=== PATIENT | male | born 1995 ===

== ENCOUNTER 2019-09-13 10:22 | Inpatient (IN) ==
[2019-09-13] MEDS ORDERED: ACETAMINOPHEN 500 MG TABLET ONE (13:42)
[2019-09-13] MEDS ORDERED: REMDESIVIR 200 MG in SODIUM CHLORIDE 0.9% 210 ML IV ONE (15:00)
[2019-09-13] MEDS ORDERED: ALBUTEROL 2.5 MG/3 ML NEB RESP TX PRN (15:08)
[2019-09-13] MEDS ORDERED: ONDANSETRON 4 MG/2 ML VIAL IV PRN (15:15)
[2019-09-13] MEDS ORDERED: PANTOPRAZOLE 40 MG VIAL IV SCH (15:30)
[2019-09-13 16:50] LABS: Basophils % 0.1 % (0.0-0.8); Hematocrit 37.9 VOL% (42.0-52.0); Hemoglobin 12.8 GM/DL (14.0-18.0); Immature Granulocytes % 0.7 %; Immature Granulocytes Absolute 0.06 #; Lymphocytes # 0.6 10*3/uL (1.4-4.0); Lymphocytes % 6.6 % (21.2-54.2); Mean Corpuscular HGB Conc 33.8 GM/DL (32-36); Mean Corpuscular Volume 90.9 FL (87-102); Mean Platelet Volume 9.3 FL (9.6-12.0); Monocytes % 3.8 % (1.7-12.7); Neutrophils % 88.8 % (38.7-73.9); Platelet Count 216 T/CUMM (130-400); Red Blood Count 4.17 MC/CUMM (3.8-5.5); Red Cell Distribution Width 13.1 % (9.3-17.3); White Blood Count 8.5 T/CUMM (4-12)
[2019-09-13] MEDS: ENOXAPARIN 100 MG/ML SYRINGE SUBCUT SCH (17:00)
[2019-09-13 17:19] LABS: Albumin 2.3 G/DL (3.4-5.0); Bilirubin,Total 0.8 MG/DL (0.2-1.0); Osmolality,Calculated 281.7 MOS/KG (273-304); Total Protein 7.2 G/DL (6.4-8.3)
[2019-09-14] MEDS ORDERED: cloNIDine 0.3 MG/24 HR PATCH TRANSDERM SCH (01:00)
[2019-09-14] MEDS: ENOXAPARIN 100 MG/ML SYRINGE SUBCUT SCH ×2 (04:13→17:30)
[2019-09-14 04:16] LABS: Basophils % 0.2 % (0.0-0.8); Hemoglobin 12.9 GM/DL (14.0-18.0); Immature Granulocytes % 0.9 %; Immature Granulocytes Absolute 0.06 #; Lymphocytes # 0.6 10*3/uL (1.4-4.0); Lymphocytes % 9.2 % (21.2-54.2); Mean Corpuscular HGB Conc 33.1 GM/DL (32-36); Mean Corpuscular Volume 91.5 FL (87-102); Mean Platelet Volume 9.3 FL (9.6-12.0); Monocytes % 5.3 % (1.7-12.7); Neutrophils % 84.4 % (38.7-73.9); Platelet Count 226 T/CUMM (130-400); Red Blood Count 4.26 MC/CUMM (3.8-5.5); White Blood Count 6.4 T/CUMM (4-12)
[2019-09-14 04:56] LABS: Calcium 7.6 MG/DL (8.5-10.1); Osmolality,Calculated 278.7 MOS/KG (273-304)
[2019-09-14] MEDS ORDERED: POTASSIUM CHLORIDE 20 MEQ TABLET PO ONE (07:07)
[2019-09-14 07:34] LABS: Bilirubin,Total 0.9 MG/DL (0.2-1.0)
[2019-09-14] MEDS ORDERED: PANTOPRAZOLE 40 MG TABLET PO SCH (09:00)
[2019-09-14] MEDS: amLODIPine 10 MG TABLET PO SCH (09:45)
[2019-09-14] MEDS: metFORMIN 500 MG TABLET PO SCH ×2 (09:45→21:12)
[2019-09-14] MEDS: INSULIN REGULAR 100 UNIT/ML SUBCUT SCH ×3 (12:53→21:12)
[2019-09-14] MEDS: REMDESIVIR 100 MG in SODIUM CHLORIDE 0.9% 230 ML IV SCH (16:05)
[2019-09-14] MEDS ORDERED: GLUCAGON 1 MG VIAL IM PRN (17:55)
[2019-09-14] MEDS ORDERED: DEXTROSE 10% 250 ML BAG IV PRN (17:55)
[2019-09-14] MEDS: hydrALAZINE 10 MG TABLET PO SCH (21:12)
[2019-09-15] MEDS: ENOXAPARIN 100 MG/ML SYRINGE SUBCUT SCH ×2 (04:00→16:38)
[2019-09-15 07:08] LABS: Basophils % 0.4 % (0.0-0.8); Hemoglobin 12.9 GM/DL (14.0-18.0); Immature Granulocytes % 1.4 %; Immature Granulocytes Absolute 0.07 #; Lymphocytes # 0.8 10*3/uL (1.4-4.0); Lymphocytes % 15.1 % (21.2-54.2); Mean Corpuscular HGB Conc 33.1 GM/DL (32-36); Mean Corpuscular Volume 92.4 FL (87-102); Mean Platelet Volume 9.8 FL (9.6-12.0); Monocytes % 7.8 % (1.7-12.7); Neutrophils % 75.3 % (38.7-73.9); Platelet Count 266 T/CUMM (130-400); Red Blood Count 4.22 MC/CUMM (3.8-5.5); Red Cell Distribution Width 13.2 % (9.3-17.3); White Blood Count 5.2 T/CUMM (4-12)
[2019-09-15 07:24] LABS: Albumin 2.2 G/DL (3.4-5.0); Bilirubin,Total 0.7 MG/DL (0.2-1.0); Calcium 8.2 MG/DL (8.5-10.1); Osmolality,Calculated 274.7 MOS/KG (273-304); Total Protein 7.1 G/DL (6.4-8.3)
[2019-09-15] MEDS: INSULIN REGULAR 100 UNIT/ML SUBCUT SCH ×4 (08:41→19:55)
[2019-09-15] MEDS: metFORMIN 500 MG TABLET PO SCH ×2 (10:01→19:55)
[2019-09-15] MEDS: amLODIPine 10 MG TABLET PO SCH (10:02)
[2019-09-15] MEDS: hydrALAZINE 10 MG TABLET PO SCH ×4 (10:02→19:55)
[2019-09-15] MEDS: lisinopriL 5 MG TABLET PO SCH (16:35)
[2019-09-15] MEDS: ATORVASTATIN 40 MG TABLET PO SCH (16:35)
[2019-09-15] MEDS: REMDESIVIR 100 MG in SODIUM CHLORIDE 0.9% 230 ML IV SCH (16:36)
[2019-09-16] MEDS: ENOXAPARIN 100 MG/ML SYRINGE SUBCUT SCH ×2 (04:45→17:20)
[2019-09-16 06:00] LABS: Basophils % 0.3 % (0.0-0.8); Eosinophils % 0.5 % (0.00-10.9); Hematocrit 39.7 VOL% (42.0-52.0); Immature Granulocytes % 2.2 %; Immature Granulocytes Absolute 0.13 #; Lymphocytes # 0.8 10*3/uL (1.4-4.0); Lymphocytes % 13.1 % (21.2-54.2); Mean Corpuscular HGB Conc 32.7 GM/DL (32-36); Mean Corpuscular Volume 92.1 FL (87-102); Mean Platelet Volume 9.3 FL (9.6-12.0); Monocytes % 8.6 % (1.7-12.7); Neutrophils % 75.3 % (38.7-73.9); Platelet Count 328 T/CUMM (130-400); Red Blood Count 4.31 MC/CUMM (3.8-5.5); Red Cell Distribution Width 12.9 % (9.3-17.3)
[2019-09-16 06:40] LABS: Calcium 8.3 MG/DL (8.5-10.1); Ferritin 570.1 ng/ml (26-388); Osmolality,Calculated 275.5 MOS/KG (273-304)
[2019-09-16] MEDS: INSULIN REGULAR 100 UNIT/ML SUBCUT SCH ×4 (09:10→20:21)
[2019-09-16] MEDS: ATORVASTATIN 40 MG TABLET PO SCH (09:11)
[2019-09-16] MEDS: metFORMIN 500 MG TABLET PO SCH ×3 (09:11→20:20)
[2019-09-16] MEDS: hydrALAZINE 10 MG TABLET PO SCH ×4 (09:11→20:15)
[2019-09-16] MEDS: amLODIPine 10 MG TABLET PO SCH (09:11)
[2019-09-16] MEDS: lisinopriL 5 MG TABLET PO SCH (09:11)
[2019-09-16] MEDS: REMDESIVIR 100 MG in SODIUM CHLORIDE 0.9% 230 ML IV SCH (15:49)
[2019-09-17] MEDS: ENOXAPARIN 100 MG/ML SYRINGE SUBCUT SCH ×2 (03:53→21:30)
[2019-09-17 06:16] LABS: Basophils % 0.5 % (0.0-0.8); Eosinophils # 0.1 10*3/uL (0.0-0.87); Eosinophils % 1.1 % (0.00-10.9); Hematocrit 39.7 VOL% (42.0-52.0); Hemoglobin 13.4 GM/DL (14.0-18.0); Immature Granulocytes % 3.3 %; Lymphocytes # 0.8 10*3/uL (1.4-4.0); Lymphocytes % 12.5 % (21.2-54.2); Mean Corpuscular HGB Conc 33.8 GM/DL (32-36); Mean Corpuscular Volume 89.6 FL (87-102); Mean Platelet Volume 9.6 FL (9.6-12.0); Monocytes % 8.8 % (1.7-12.7); Neutrophils % 73.8 % (38.7-73.9); Platelet Count 344 T/CUMM (130-400); Red Blood Count 4.43 MC/CUMM (3.8-5.5); Red Cell Distribution Width 12.9 % (9.3-17.3); White Blood Count 6.2 T/CUMM (4-12)
[2019-09-17 06:39] LABS: Calcium 8.4 MG/DL (8.5-10.1); Ferritin 568.3 ng/ml (26-388); Osmolality,Calculated 274.5 MOS/KG (273-304)
[2019-09-17] MEDS: POTASSIUM CHLORIDE 20 MEQ TABLET PO PRN (06:57)
[2019-09-17] MEDS: INSULIN REGULAR 100 UNIT/ML SUBCUT SCH ×4 (08:43→21:30)
[2019-09-17] MEDS: metFORMIN 500 MG TABLET PO SCH ×2 (09:28→21:29)
[2019-09-17] MEDS: ATORVASTATIN 40 MG TABLET PO SCH (09:28)
[2019-09-17] MEDS: hydrALAZINE 10 MG TABLET PO SCH ×4 (09:28→21:29)
[2019-09-17] MEDS: amLODIPine 10 MG TABLET PO SCH (09:29)
[2019-09-17] MEDS: lisinopriL 5 MG TABLET PO SCH (09:29)
[2019-09-17] MEDS: ACETAMINOPHEN 500 MG TABLET PO PRN (12:37)
[2019-09-17] MEDS: REMDESIVIR 100 MG in SODIUM CHLORIDE 0.9% 230 ML IV SCH (17:01)
[2019-09-18 06:14] LABS: Basophils % 0.5 % (0.0-0.8); Eosinophils # 0.2 10*3/uL (0.0-0.87); Eosinophils % 2.1 % (0.00-10.9); Hematocrit 40.1 VOL% (42.0-52.0); Hemoglobin 13.3 GM/DL (14.0-18.0); Immature Granulocytes % 3.9 %; Immature Granulocytes Absolute 0.29 #; Lymphocytes # 0.7 10*3/uL (1.4-4.0); Lymphocytes % 9.9 % (21.2-54.2); Mean Corpuscular HGB Conc 33.2 GM/DL (32-36); Mean Corpuscular Volume 91.8 FL (87-102); Mean Platelet Volume 9.4 FL (9.6-12.0); Neutrophils % 75.6 % (38.7-73.9); Platelet Count 359 T/CUMM (130-400); Red Blood Count 4.37 MC/CUMM (3.8-5.5); Red Cell Distribution Width 12.9 % (9.3-17.3); White Blood Count 7.5 T/CUMM (4-12)
[2019-09-18 06:24] LABS: Calcium 8.4 MG/DL (8.5-10.1); Osmolality,Calculated 273.5 MOS/KG (273-304)
[2019-09-18] MEDS ORDERED: POTASSIUM CHLORIDE 20 MEQ TABLET PO ONE (06:59)
[2019-09-18] MEDS: ATORVASTATIN 40 MG TABLET PO SCH (08:45)
[2019-09-18] MEDS: INSULIN REGULAR 100 UNIT/ML SUBCUT SCH ×4 (08:45→21:38)
[2019-09-18] MEDS: lisinopriL 5 MG TABLET PO SCH (08:45)
[2019-09-18] MEDS: ENOXAPARIN 100 MG/ML SYRINGE SUBCUT SCH ×2 (08:45→21:08)
[2019-09-18] MEDS: hydrALAZINE 10 MG TABLET PO SCH ×4 (08:45→21:08)
[2019-09-18] MEDS: amLODIPine 10 MG TABLET PO SCH (08:45)
[2019-09-18] MEDS: metFORMIN 500 MG TABLET PO SCH ×2 (08:45→21:08)
[2019-09-18] MEDS: ACETAMINOPHEN 500 MG TABLET PO PRN ×2 (16:09→21:09)
[2019-09-19 05:50] LABS: Basophils % 0.3 % (0.0-0.8); Eosinophils # 0.3 10*3/uL (0.0-0.87); Eosinophils % 2.9 % (0.00-10.9); Hematocrit 38.3 VOL% (42.0-52.0); Immature Granulocytes Absolute 0.36 #; Lymphocytes # 0.8 10*3/uL (1.4-4.0); Lymphocytes % 9.1 % (21.2-54.2); Mean Corpuscular HGB Conc 33.9 GM/DL (32-36); Mean Corpuscular Volume 89.1 FL (87-102); Mean Platelet Volume 9.5 FL (9.6-12.0); Monocytes % 6.7 % (1.7-12.7); Platelet Count 342 T/CUMM (130-400)
[2019-09-19 06:12] LABS: Calcium 8.4 MG/DL (8.5-10.1); Osmolality,Calculated 271.7 MOS/KG (273-304)
[2019-09-19] MEDS: INSULIN REGULAR 100 UNIT/ML SUBCUT SCH ×4 (08:03→21:44)
[2019-09-19] MEDS: ENOXAPARIN 100 MG/ML SYRINGE SUBCUT SCH ×2 (08:06→21:06)
[2019-09-19] MEDS: metFORMIN 500 MG TABLET PO SCH ×2 (08:08→21:06)
[2019-09-19] MEDS: lisinopriL 5 MG TABLET PO SCH (08:08)
[2019-09-19] MEDS: POTASSIUM CHLORIDE 20 MEQ TABLET PO PRN ×3 (08:08→12:20)
[2019-09-19] MEDS: amLODIPine 10 MG TABLET PO SCH (08:08)
[2019-09-19] MEDS: hydrALAZINE 10 MG TABLET PO SCH ×4 (08:08→21:05)
[2019-09-19] MEDS: ATORVASTATIN 40 MG TABLET PO SCH (08:08)
[2019-09-19] MEDS: ACETAMINOPHEN 500 MG TABLET PO PRN (21:07)
[2019-09-20 05:44] LABS: Basophils # 0.1 10*3/uL (0.0-0.2); Basophils % 0.6 % (0.0-0.8); Eosinophils # 0.2 10*3/uL (0.0-0.87); Eosinophils % 2.1 % (0.00-10.9); Hematocrit 39.9 VOL% (42.0-52.0); Hemoglobin 13.4 GM/DL (14.0-18.0); Immature Granulocytes % 4.2 %; Immature Granulocytes Absolute 0.37 #; Lymphocytes # 0.8 10*3/uL (1.4-4.0); Lymphocytes % 8.7 % (21.2-54.2); Mean Corpuscular HGB Conc 33.6 GM/DL (32-36); Mean Corpuscular Volume 91.1 FL (87-102); Mean Platelet Volume 10.7 FL (9.6-12.0); Monocytes % 6.7 % (1.7-12.7); Neutrophils % 77.7 % (38.7-73.9); Platelet Count 242 T/CUMM (130-400); Red Blood Count 4.38 MC/CUMM (3.8-5.5); White Blood Count 8.9 T/CUMM (4-12)
[2019-09-20 06:11] LABS: Calcium 8.6 MG/DL (8.5-10.1); Osmolality,Calculated 257.7 MOS/KG (273-304)
[2019-09-20] MEDS: INSULIN REGULAR 100 UNIT/ML SUBCUT SCH ×4 (08:31→20:27)
[2019-09-20] MEDS: ENOXAPARIN 100 MG/ML SYRINGE SUBCUT SCH ×2 (08:32→20:12)
[2019-09-20] MEDS: hydrALAZINE 10 MG TABLET PO SCH ×4 (08:32→20:12)
[2019-09-20] MEDS: ATORVASTATIN 40 MG TABLET PO SCH (08:32)
[2019-09-20] MEDS: metFORMIN 500 MG TABLET PO SCH ×2 (08:32→20:12)
[2019-09-20] MEDS: amLODIPine 10 MG TABLET PO SCH (08:32)
[2019-09-20] MEDS: lisinopriL 5 MG TABLET PO SCH (08:33)
[2019-09-20] MEDS: ACETAMINOPHEN 500 MG TABLET PO PRN (23:54)
[2019-09-21 05:34] LABS: Basophils % 0.3 % (0.0-0.8); Eosinophils # 0.1 10*3/uL (0.0-0.87); Eosinophils % 1.1 % (0.00-10.9); Hematocrit 39.5 VOL% (42.0-52.0); Hemoglobin 13.3 GM/DL (14.0-18.0); Immature Granulocytes % 4.7 %; Lymphocytes % 9.7 % (21.2-54.2); Mean Corpuscular HGB Conc 33.7 GM/DL (32-36); Mean Platelet Volume 10.1 FL (9.6-12.0); Neutrophils % 78.2 % (38.7-73.9); Platelet Count 368 T/CUMM (130-400); Red Blood Count 4.34 MC/CUMM (3.8-5.5); Red Cell Distribution Width 12.9 % (9.3-17.3); White Blood Count 10.7 T/CUMM (4-12)
[2019-09-21 05:54] LABS: Calcium 8.7 MG/DL (8.5-10.1); Osmolality,Calculated 262.4 MOS/KG (273-304)
[2019-09-21] MEDS: INSULIN REGULAR 100 UNIT/ML SUBCUT SCH ×4 (07:34→20:42)
[2019-09-21 08:16] LABS: Calcium 8.5 MG/DL (8.5-10.1); Ferritin 889.8 ng/ml (26-388); Osmolality,Calculated 266.1 MOS/KG (273-304)
[2019-09-21] MEDS: ENOXAPARIN 100 MG/ML SYRINGE SUBCUT SCH ×2 (08:20→20:05)
[2019-09-21] MEDS: hydrALAZINE 10 MG TABLET PO SCH (08:21)
[2019-09-21] MEDS: amLODIPine 10 MG TABLET PO SCH (08:21)
[2019-09-21] MEDS: POTASSIUM CHLORIDE 20 MEQ TABLET PO PRN (08:21)
[2019-09-21] MEDS: ATORVASTATIN 40 MG TABLET PO SCH (08:21)
[2019-09-21] MEDS: lisinopriL 5 MG TABLET PO SCH (08:21)
[2019-09-21] MEDS: metFORMIN 500 MG TABLET PO SCH ×2 (08:22→20:05)
[2019-09-21] MEDS: ACETAMINOPHEN 500 MG TABLET PO PRN (19:10)
[2019-09-21] MEDS: hydrALAZINE 25 MG TABLET PO SCH (20:05)
[2019-09-22 05:58] LABS: Calcium 8.6 MG/DL (8.5-10.1); Ferritin 818.7 ng/ml (26-388); Osmolality,Calculated 263.4 MOS/KG (273-304)
[2019-09-22] MEDS: INSULIN REGULAR 100 UNIT/ML SUBCUT SCH ×4 (08:05→20:59)
[2019-09-22] MEDS: lisinopriL 5 MG TABLET PO SCH (09:00)
[2019-09-22] MEDS: ATORVASTATIN 40 MG TABLET PO SCH (09:01)
[2019-09-22] MEDS: metFORMIN 500 MG TABLET PO SCH ×2 (09:01→20:58)
[2019-09-22] MEDS: ENOXAPARIN 100 MG/ML SYRINGE SUBCUT SCH ×2 (09:01→20:58)
[2019-09-22] MEDS: amLODIPine 10 MG TABLET PO SCH (09:01)
[2019-09-22] MEDS: hydrALAZINE 25 MG TABLET PO SCH ×2 (09:01→20:58)
[2019-09-22] MEDS: ACETAMINOPHEN 500 MG TABLET PO PRN (19:45)
[2019-09-23 05:03] LABS: Basophils # 0.1 10*3/uL (0.0-0.2); Basophils % 0.5 % (0.0-0.8); Eosinophils # 0.2 10*3/uL (0.0-0.87); Hematocrit 36.9 VOL% (42.0-52.0); Hemoglobin 12.5 GM/DL (14.0-18.0); Immature Granulocytes Absolute 0.21 #; Lymphocytes # 1.2 10*3/uL (1.4-4.0); Lymphocytes % 11.3 % (21.2-54.2); Mean Corpuscular HGB Conc 33.9 GM/DL (32-36); Mean Corpuscular Volume 91.1 FL (87-102); Mean Platelet Volume 10.8 FL (9.6-12.0); Neutrophils % 77.2 % (38.7-73.9); Platelet Count 279 T/CUMM (130-400); Red Blood Count 4.05 MC/CUMM (3.8-5.5); Red Cell Distribution Width 13.2 % (9.3-17.3); White Blood Count 10.3 T/CUMM (4-12)
[2019-09-23 06:17] LABS: Calcium 8.7 MG/DL (8.5-10.1); Ferritin 1121.9 ng/ml (26-388); Osmolality,Calculated 260.5 MOS/KG (273-304)
[2019-09-23] MEDS: INSULIN REGULAR 100 UNIT/ML SUBCUT SCH ×4 (07:31→20:20)
[2019-09-23] MEDS: ENOXAPARIN 100 MG/ML SYRINGE SUBCUT SCH ×2 (08:11→20:20)
[2019-09-23] MEDS: ATORVASTATIN 40 MG TABLET PO SCH (08:12)
[2019-09-23] MEDS: hydrALAZINE 25 MG TABLET PO SCH ×2 (08:12→20:20)
[2019-09-23] MEDS: lisinopriL 5 MG TABLET PO SCH (08:12)
[2019-09-23] MEDS: metFORMIN 500 MG TABLET PO SCH ×2 (08:12→20:20)
[2019-09-23] MEDS: amLODIPine 10 MG TABLET PO SCH (08:12)
[2019-09-24 05:22] LABS: Basophils # 0.1 10*3/uL (0.0-0.2); Basophils % 0.5 % (0.0-0.8); Eosinophils # 0.2 10*3/uL (0.0-0.87); Eosinophils % 1.9 % (0.00-10.9); Hematocrit 37.5 VOL% (42.0-52.0); Hemoglobin 12.4 GM/DL (14.0-18.0); Immature Granulocytes % 2.2 %; Immature Granulocytes Absolute 0.24 #; Lymphocytes # 1.3 10*3/uL (1.4-4.0); Lymphocytes % 11.9 % (21.2-54.2); Mean Corpuscular HGB Conc 33.1 GM/DL (32-36); Mean Corpuscular Volume 92.4 FL (87-102); Mean Platelet Volume 10.1 FL (9.6-12.0); Monocytes % 7.4 % (1.7-12.7); Neutrophils % 76.1 % (38.7-73.9); Platelet Count 375 T/CUMM (130-400); Red Blood Count 4.06 MC/CUMM (3.8-5.5); Red Cell Distribution Width 13.4 % (9.3-17.3); White Blood Count 10.9 T/CUMM (4-12)
[2019-09-24 05:40] LABS: Calcium 8.9 MG/DL (8.5-10.1); Ferritin 1014.4 ng/ml (26-388); Osmolality,Calculated 264.2 MOS/KG (273-304)
[2019-09-24] MEDS: INSULIN REGULAR 100 UNIT/ML SUBCUT SCH ×4 (07:53→20:39)
[2019-09-24] MEDS: hydrALAZINE 25 MG TABLET PO SCH ×2 (08:13→20:54)
[2019-09-24] MEDS: ENOXAPARIN 100 MG/ML SYRINGE SUBCUT SCH ×2 (08:13→20:54)
[2019-09-24] MEDS: amLODIPine 10 MG TABLET PO SCH (08:14)
[2019-09-24] MEDS: lisinopriL 5 MG TABLET PO SCH (08:14)
[2019-09-24] MEDS: POTASSIUM CHLORIDE 20 MEQ TABLET PO PRN (08:14)
[2019-09-24] MEDS: metFORMIN 500 MG TABLET PO SCH ×2 (08:14→20:54)
[2019-09-24] MEDS: ATORVASTATIN 40 MG TABLET PO SCH (08:14)
[2019-09-24] MEDS ORDERED: LOPERAMIDE 2 MG CAPSULE PO PRN (13:01)
[2019-09-25 05:36] LABS: Basophils # 0.1 10*3/uL (0.0-0.2); Basophils % 0.7 % (0.0-0.8); Eosinophils # 0.2 10*3/uL (0.0-0.87); Eosinophils % 2.4 % (0.00-10.9); Hematocrit 37.2 VOL% (42.0-52.0); Hemoglobin 12.6 GM/DL (14.0-18.0); Immature Granulocytes Absolute 0.18 #; Lymphocytes # 1.3 10*3/uL (1.4-4.0); Lymphocytes % 13.9 % (21.2-54.2); Mean Corpuscular HGB Conc 33.9 GM/DL (32-36); Mean Corpuscular Volume 90.5 FL (87-102); Mean Platelet Volume 10.2 FL (9.6-12.0); Monocytes % 8.3 % (1.7-12.7); Neutrophils % 72.7 % (38.7-73.9); Platelet Count 367 T/CUMM (130-400); Red Blood Count 4.11 MC/CUMM (3.8-5.5); Red Cell Distribution Width 13.3 % (9.3-17.3); White Blood Count 9.2 T/CUMM (4-12)
[2019-09-25 06:11] LABS: Calcium 9.2 MG/DL (8.5-10.1); Ferritin 871.6 ng/ml (26-388); Osmolality,Calculated 264.2 MOS/KG (273-304)
[2019-09-25 06:30] LABS: Hypochromasia Slight; Microcytosis Slight; Platelet Estimate Normal
[2019-09-25] MEDS: hydrALAZINE 25 MG TABLET PO SCH ×2 (08:15→20:19)
[2019-09-25] MEDS: lisinopriL 5 MG TABLET PO SCH (08:15)
[2019-09-25] MEDS: metFORMIN 500 MG TABLET PO SCH ×2 (08:15→20:19)
[2019-09-25] MEDS: amLODIPine 10 MG TABLET PO SCH (08:15)
[2019-09-25] MEDS: ENOXAPARIN 100 MG/ML SYRINGE SUBCUT SCH ×2 (08:15→20:19)
[2019-09-25] MEDS: ATORVASTATIN 40 MG TABLET PO SCH (08:15)
[2019-09-25] MEDS: INSULIN REGULAR 100 UNIT/ML SUBCUT SCH ×4 (09:05→20:41)
[2019-09-25 14:20] LABS: ABG Base Excess 3.5 MMOL/L (-2.5-2.5); ABG HCO3 27.4 MMOL/L (20-26); ABG Oxygen Saturation 92.9 % (95-100); ABG PCO2 40.3 MM HG (35-48); ABG PH 7.446 (7.35-7.45); ABG PO2 65.3 MM HG (80-95); ABG TCO2 24.6 MMOL/L (23-27); Allen Test Positive; Pt O2 Delivery Device Other
[2019-09-26 05:38] LABS: Basophils # 0.1 10*3/uL (0.0-0.2); Basophils % 0.7 % (0.0-0.8); Eosinophils # 0.2 10*3/uL (0.0-0.87); Eosinophils % 2.9 % (0.00-10.9); Hematocrit 37.1 VOL% (42.0-52.0); Hemoglobin 12.3 GM/DL (14.0-18.0); Immature Granulocytes % 2.2 %; Immature Granulocytes Absolute 0.18 #; Lymphocytes # 1.4 10*3/uL (1.4-4.0); Lymphocytes % 16.6 % (21.2-54.2); Mean Corpuscular HGB Conc 33.2 GM/DL (32-36); Mean Corpuscular Volume 92.5 FL (87-102); Mean Platelet Volume 10.1 FL (9.6-12.0); Monocytes % 9.6 % (1.7-12.7); Platelet Count 368 T/CUMM (130-400); Red Blood Count 4.01 MC/CUMM (3.8-5.5); Red Cell Distribution Width 13.5 % (9.3-17.3); White Blood Count 8.2 T/CUMM (4-12)
[2019-09-26 06:01] LABS: Ferritin 751.9 ng/ml (26-388); Osmolality,Calculated 264.2 MOS/KG (273-304)
[2019-09-26] MEDS: INSULIN REGULAR 100 UNIT/ML SUBCUT SCH ×4 (07:26→21:55)
[2019-09-26] MEDS: metFORMIN 500 MG TABLET PO SCH ×2 (08:00→21:55)
[2019-09-26] MEDS: hydrALAZINE 25 MG TABLET PO SCH ×2 (08:00→21:55)
[2019-09-26] MEDS: amLODIPine 10 MG TABLET PO SCH (08:00)
[2019-09-26] MEDS: ATORVASTATIN 40 MG TABLET PO SCH (08:00)
[2019-09-26] MEDS: lisinopriL 5 MG TABLET PO SCH (08:00)
[2019-09-26] MEDS: POTASSIUM CHLORIDE 20 MEQ TABLET PO PRN ×3 (08:30→17:14)
[2019-09-26] MEDS: ENOXAPARIN 100 MG/ML SYRINGE SUBCUT SCH ×2 (08:56→21:55)
[2019-09-27 05:40] LABS: Basophils # 0.1 10*3/uL (0.0-0.2); Basophils % 0.9 % (0.0-0.8); Eosinophils # 0.2 10*3/uL (0.0-0.87); Eosinophils % 2.7 % (0.00-10.9); Hematocrit 38.2 VOL% (42.0-52.0); Hemoglobin 12.5 GM/DL (14.0-18.0); Immature Granulocytes % 2.3 %; Immature Granulocytes Absolute 0.18 #; Lymphocytes # 1.3 10*3/uL (1.4-4.0); Lymphocytes % 16.7 % (21.2-54.2); Mean Corpuscular HGB Conc 32.7 GM/DL (32-36); Mean Corpuscular Volume 93.4 FL (87-102); Mean Platelet Volume 10.1 FL (9.6-12.0); Monocytes % 9.7 % (1.7-12.7); Neutrophils % 67.7 % (38.7-73.9); Platelet Count 348 T/CUMM (130-400); Red Blood Count 4.09 MC/CUMM (3.8-5.5); Red Cell Distribution Width 13.6 % (9.3-17.3); White Blood Count 7.9 T/CUMM (4-12)
[2019-09-27] MEDS: INSULIN REGULAR 100 UNIT/ML SUBCUT SCH ×4 (08:32→20:14)
[2019-09-27] MEDS: ENOXAPARIN 100 MG/ML SYRINGE SUBCUT SCH ×2 (08:32→20:15)
[2019-09-27] MEDS: lisinopriL 5 MG TABLET PO SCH (08:33)
[2019-09-27] MEDS: hydrALAZINE 25 MG TABLET PO SCH ×2 (08:33→20:14)
[2019-09-27] MEDS: ATORVASTATIN 40 MG TABLET PO SCH (08:33)
[2019-09-27] MEDS: amLODIPine 10 MG TABLET PO SCH (08:33)
[2019-09-27] MEDS: metFORMIN 500 MG TABLET PO SCH ×2 (08:33→20:14)
[2019-09-28 05:47] LABS: Basophils # 0.1 10*3/uL (0.0-0.2); Basophils % 0.9 % (0.0-0.8); Eosinophils # 0.2 10*3/uL (0.0-0.87); Eosinophils % 2.8 % (0.00-10.9); Hematocrit 37.6 VOL% (42.0-52.0); Hemoglobin 12.4 GM/DL (14.0-18.0); Immature Granulocytes Absolute 0.24 #; Lymphocytes # 1.5 10*3/uL (1.4-4.0); Lymphocytes % 18.1 % (21.2-54.2); Mean Corpuscular Volume 93.5 FL (87-102); Mean Platelet Volume 9.7 FL (9.6-12.0); Monocytes % 9.9 % (1.7-12.7); Neutrophils % 65.3 % (38.7-73.9); Platelet Count 316 T/CUMM (130-400); Red Blood Count 4.02 MC/CUMM (3.8-5.5); Red Cell Distribution Width 13.5 % (9.3-17.3); White Blood Count 8.1 T/CUMM (4-12)
[2019-09-28] MEDS: INSULIN REGULAR 100 UNIT/ML SUBCUT SCH ×4 (08:19→20:31)
[2019-09-28] MEDS: metFORMIN 500 MG TABLET PO SCH ×2 (10:11→20:31)
[2019-09-28] MEDS: hydrALAZINE 25 MG TABLET PO SCH ×2 (10:11→20:31)
[2019-09-28] MEDS: ENOXAPARIN 100 MG/ML SYRINGE SUBCUT SCH ×2 (10:12→20:31)
[2019-09-28] MEDS: ATORVASTATIN 40 MG TABLET PO SCH (10:12)
[2019-09-28] MEDS: lisinopriL 5 MG TABLET PO SCH (10:13)
[2019-09-28] MEDS: amLODIPine 10 MG TABLET PO SCH (10:16)
[2019-09-29] MEDS: INSULIN REGULAR 100 UNIT/ML SUBCUT SCH ×2 (07:11→12:22)
[2019-09-29] MEDS: metFORMIN 500 MG TABLET PO SCH (08:13)
[2019-09-29] MEDS: ATORVASTATIN 40 MG TABLET PO SCH (08:13)
[2019-09-29] MEDS: ENOXAPARIN 100 MG/ML SYRINGE SUBCUT SCH (08:13)
[2019-09-29] MEDS: amLODIPine 10 MG TABLET PO SCH (08:13)
[2019-09-29] MEDS: lisinopriL 5 MG TABLET PO SCH (08:13)
[2019-09-29] MEDS: hydrALAZINE 25 MG TABLET PO SCH (08:13)
[2019-09-29 11:51] VITALS: BP 139/72
== END 2019-09-29 15:30 | disposition home or self-care (01) | DRG 177 ==
LOC: N.CC 13:08 → SUATTDRO 13:08 → N.2W 09-15 01:53 → N.2E 09-15 14:03
PROVIDERS: ADMIT Internal Medicine; ATTEND Internal Medicine